=== PATIENT | female | born 1990 | race Caucasian/White ===

== ENCOUNTER → 2016-09-26 | Day surgery (SDC) | payer BC ==
--- NOTE | 2016-09-27 15:40 | PATH ---
Surgical Pathology Report Patient Name: LO FRITZ [facility]. Rec. #: [id number] /Age/Gender: 1990 (Age: 26) / F Account: [id number] Location: [facility] RADIOLOGY U Taken: 09/26/2016 Received: 09/26/2016 Reported: 09/27/2016 Physicians: Janette Guan Specimen(s) Received LEFT BREAST MASS 5:00 RETROAREOLAR Clinical History Ultrasound findings: Probably benign left breast hypoechoic mass 5:00 retroareolar, rule out fibroadenoma Final Diagnosis BREAST, LEFT, 5:00, RETROAREOLAR, CORE BIOPSY: BENIGN BREAST TISSUE SHOWING FIBROADENOMA AND STROMAL FIBROSIS. Electronically Signed Enid Grossman M.D. Gross Description Received in formalin, labeled "left breast 5:00 retro," are 5 wong-yellow, cylindrical portions of fibroadipose tissue ranging from 0.6-1.7 cm. in length and averaging 0.1 cm. in diameter. The specimen is submitted in toto in one cassette. Time to formalin fixation: 2 minutes Total formalin fixation time: Approximately 9 hours. 09/26/201609/26/2016
== END | disposition home or self-care (01) ==
LOC: FRADUS-SUR 08:23
PROVIDERS: ATTEND Physician Assistant
PROC: 0HBU3ZX Excision of Left Breast, Percutaneous Approach, Diagnostic (ICD-10-PCS; principal; 2016-09-26)
DX: D24.2 Benign neoplasm of left breast (principal); N63 Unspecified lump in breast; N60.32 Fibrosclerosis of left breast
CPT/HCPCS: 19083; 87899; 88305-TC; A4648